=== PATIENT | male | born 1980 | race Caucasian/White ===

== ENCOUNTER → 2017-11-11 | Outpatient (CLI) | payer OTHER | END | disposition home or self-care (01) | LOC: CFH 10:43 | PROVIDERS: ATTEND Otolaryngology | DX: J18.9 Pneumonia, unspecified organism (principal); R91.8 Other nonspecific abnormal finding of lung field | CPT/HCPCS: 71046 ==

== ENCOUNTER 2017-11-24 15:43 | Emergency (ER) | payer OTHER ==
[~2017-11-24] VITALS: Ht 172.7 cm; Wt 68.5 kg
[2017-11-24 17:16] VITALS: BP 128/77
== END 2017-11-24 17:20 | disposition home or self-care (01) ==
LOC: ED 17:05
DX: J15.9 Unspecified bacterial pneumonia (principal); J98.01 Acute bronchospasm
CPT/HCPCS: 71046; 99284